=== PATIENT | female | born 1995 | race Caucasian/White ===

== ENCOUNTER → 2021-02-21 10:00 | Outpatient (CLI) | payer OTHER, BC, SELFPAY ==
--- NOTE | 2021-02-21 10:04 | DI.US.S_ITS ---
PROCEDURE: US PELVIC COMPLETE INDICATIONS: PCOS; INFERTILITY TECHNIQUE: Real-time scanning was performed of the pelvic organs, with image documentation. Additional endovaginal scanning was necessary due to incomplete visualization of the adnexal and endometrial structures by transabdominal scanning. COMPARISON: None. FINDINGS: Uterus: Uterus is normal in size at 5 x 2.5 x 3.6 cm. The endometrium measures 6 mm in combined thickness. Ovaries: The right ovary measures 2.8 x 1.6 x 1.8 cm and demonstrates a pedunculated simple cyst that measures up to 16 mm, which is considered to be within physiologic limits. The left ovary measures 2.7 x 1.4 x 2.1 cm. The ovaries have a normal sonographic appearance. Less than 12 follicles can be seen involving each ovary. No adnexal masses are seen. Other: No pathologic free abdominal or pelvic fluid. IMPRESSION: No significant ovarian abnormality can be seen. Dictated by: Surya Lucero M.D. on 02/21/2021 at 10:50 Approved by: Surya Lucero M.D. on 02/21/2021 at 10:51
[2021-02-21 11:22] LABS: Hemoglobin A1C% w Est Avg Glu 9.7 % (4.0-6.0)
[2021-02-21 11:41] LABS: Free T4, Direct Thyroxine 1.15 ng/dL (0.78-2.19)
[2021-02-21 11:48] LABS: Estradiol, Total 54.8 pg/mL
[2021-02-21 11:55] LABS: Thyroid Stimulating Hormone 4.13 uIU/mL (0.47-4.68)
[2021-02-26 22:47] LABS: Anti Mullerian Hormone 8.05 ng/mL (.)
== END ==
PROVIDERS: Referring Provider Obstetrics & Gynecology; Visit Provider Obstetrics & Gynecology
DX: E28.2 Polycystic ovarian syndrome (principal); N97.9 Female infertility, unspecified
CPT/HCPCS: 36415; 76830; 76856; 82397; 82670; 83001; 83036; 84439; 84443